=== PATIENT | male | born 1960 | race Caucasian/White ===

== ENCOUNTER 2017-07-22 10:00 | Emergency (ER) | payer BC ==
[~2017-07-22] VITALS: Ht 185.4 cm; Wt 106.5 kg
[2017-07-22 10:09] VITALS: BP 125/77
[2017-07-22] MEDS ORDERED: NEXIUM40 MG PO (12:46)
[2017-07-22] MEDS ORDERED: TORADOL10 MG PO (14:01)
[2017-07-22] MEDS ORDERED: FLEXERIL10 MG PO (14:01)
== END 2017-07-22 14:25 | disposition home or self-care (01) ==
LOC: EME 10:00
DX: M54.5 Low back pain (principal); K21.9 Gastro-esophageal reflux disease without esophagitis; G89.29 Other chronic pain; Z88.0 Allergy status to penicillin
CPT/HCPCS: 99281; 99285; J1885

== ENCOUNTER 2017-11-07 13:09 | Emergency (ER) | payer BC ==
[~2017-11-07] VITALS: Ht 188 cm; Wt 109.1 kg
[~2017-11-07 13:09] MED LIST: FLEXERIL10 MG PO; NEXIUM40 MG PO; TORADOL10 MG PO
[2017-11-07 13:54] LABS: HEMATOCRIT 40.7 % (38.0-50.0); HEMOGLOBIN 14.2 G/DL (12.5-16.6); MCHC 34.9 G/DL (30.0-36.0); MCV 85.9 FL (86-99); PLATELET COUNT 193 K/uL (156-360); RBC DIS.WIDTH-CV 12.3 % (11.8-14.6); RBC DIS.WIDTH-SD 38.4 % (39-53); RED BLOOD COUNT 4.74 M/uL (4.00-5.50); WHITE BLOOD COUNT 6.3 K/uL (4.1-10.2)
[2017-11-07 14:03] LABS: CHLORIDE 108 mEq/L (99-109); POTASSIUM 3.9 mEq/L (3.7-5.4); SODIUM 143 mEq/L (136-147)
[2017-11-07 14:05] LABS: GLUCOSE 102 mg/dL (70-99)
[2017-11-07 14:09] LABS: CREATININE 1.3 mg/dL (0.6-1.3); GFR ESTIMATE (CALCULATED) > 59 mL/min/ (58.99-99999); UREA NITROGEN (BUN) 21 mg/dL (9-23)
[2017-11-07 14:15] LABS: TROP-I INTERPRETATION NEGATIVE; TROPONIN-I 0.01 ng/mL (0.0-0.30)
[2017-11-07 15:11] LABS: D-DIMER ELISA < 150.00 ng/mLDDU (<230)
[2017-11-07 16:21] LABS: TROP-I INTERPRETATION NEGATIVE; TROPONIN-I 0.01 ng/mL (0.0-0.30)
[2017-11-07 16:35] VITALS: BP 145/79
== END 2017-11-07 16:41 | disposition home or self-care (01) ==
LOC: EME 13:09
PROVIDERS: Nurse Practitioner Family
DX: R07.9 Chest pain, unspecified (principal); F43.9 Reaction to severe stress, unspecified; M79.602 Pain in left arm
CPT/HCPCS: 71046; 80048; 84484; 85027; 85379; 93005; 99281; 99284